=== PATIENT | male | born 1940 | race Caucasian/White ===

== ENCOUNTER → 2019-09-03 | Day surgery (SDC) | payer MEDICARE, OTHER ==
[~2019-09-03] MED LIST: ALLOPURINOL300 MG PO; ASPIRIN81 MG PO; CORDARONE200 MG PO; FINASTERIDE5 MG PO; FUROSEMIDE40 MG PO; GLIMEPIRIDE2 MG PO; HYDRALAZINE HCL50 MG; JANUVIA100 MG PO; LABETALOL HCL100 MG PO; LIDOCAINE HCL 2% LOCAL INJ 5 ML SDV VIAL INJ ONE; LOSARTAN POTAS100 MG PO; LOVASTATIN40 MG; NIASPAN1000 MG; NIFEDICAL XL30 MG PO; PRADAXA150 MG; PROPOFOL IV EMULSION 10 MG/ML 20 ML VIAL ONE; SODIUM CHLORIDE 0.9% 500ML 500 ML ONE; TAMSULOSIN HCL0.4 MG
--- OUTSIDE RECORDS SUMMARY | 2019-09-03 09:51 | XMS REPORT ---
Author Author [facility] Address Unknown Phone Unavailable Care Team Providers Care Electrical Line Mechanic Name Role Phone Unavailable Unavailable Payers Payer Name Policy Type Policy Number Effective Date Expiration Date Problems This patient has no known problems. Allergies, Adverse Reactions, Alerts Allergy Name Allergy Type Status Severity Reaction(s) Onset Date Inactive Date Treating Clinician Comments neomycin DA Active [place] 2019-07-21 00:00:00 bacitracin DA Active [place] 2019-07-21 00:00:00 polymyxin B DA Active [place] 2019-07-21 00:00:00 neomycin DA Active [place] 2019-07-15 00:00:00 bacitracin DA Active [place] 2019-07-15 00:00:00 polymyxin B DA Active [place] 2019-07-15 00:00:00 neomycin DA Active [place] 2018-02-18 00:00:00 bacitracin DA Active [place] 2018-02-18 00:00:00 polymyxin B DA Active [place] 2018-02-18 00:00:00 Medications This patient has no known medications. Results Test Description Test Time Test Comments Text Results Atomic Results Result Comments GLUBED 2019-07-21 13:20:00 GLUBED (test code=GLUBED) 106 mg/dL 60-125 - XR FLUORO FOR SPINE [id number] 13:15:00 Patient Name: YEIMI TONG Unit No: [id number] EXAMS: CPT CODE: [id number] XR FLUORO FOR SPINE INJ 11837 LUMBAR TRANSFORAMINAL INJECTION REFERRING PHYSICIAN: PREOPERATIVE DIAGNOSIS: Degenerative Lumbar Disc Disease. POSTOPERATIVE DIAGNOSIS: Lumbar radiculopathy PROCEDURES PERFORMED 1. Fluoroscopically guided needle localization of the bilateral L4, bilateral L5 spinal nerve/nerves with transforaminal epidural steroid injection/injections. 2. Transforaminal epidurogram/epidurograms at bilateral L4, bilateral L5. FINDINGS: Poor filling all. Concordant provocation bilateral L5 hips, left L4 buttock. Pain relief-100%. ANTIBIOTIC: Cefazolin ESTIMATED BLOOD LOSS: Minimal ANESTHESIA: (TIVA )Total intravenous anesthetic (patient intolerant to sedatives and hypnotics) COMPLICATIONS: None DETAILS OF PROCEDURE: After obtaining stable vital signs, informed consent and IV access, with no known contraindications to proceeding, the patient was taken to the f luoroscopy suite and placed in a prone position with all extremities padde d and appropriate monitors placed. A sterile prep and drape was performed over the lumbosacral spine. Using fluoroscopic visualization at ea ch level the insertion site was marked for a paravertebral approach to the foramen. Using standard technique, a 25 gauge needle was advanced to the base of the pedicle. In AP view, final positioning was obtained outside th e 6 on the clock position on the pedicle. Then, 1 ml of Isovue-300 contras t was injected to produce the epidurograms. No paresthesias were elicited with needle insertion or injection and there were no signs of intrav ascular or intrathecal uptake. Then, with 1 ml of 4% lidocaine and 10 mg of triamcinolone was injected incrementally with frequent negative aspira tions. There were no signs of intravascular or intrathecal uptake. Each rey bsequent level was done using the same technique and medications. The raf ent's vital signs remained stable. The patient was taken to the PACU in go od condition. Electronically Signed by Pricilla Moore on 0 at 1315 Reported and signed by: Prosper Moore M.D. [facility] NAME: YEIMI TONG [address] [facility] PHYS: DOCUD - DoctorProsper MD [place], [place] [address] : 1940 AGE: 78 SEX: M LOC: ASIA PHONE #: EXAM DATE: 07/21/2019 STATUS: REG MOC FAX #: RAD #: D/C DT PAGE 1 Signed Report (CONTINUED) Patient Name: YEIMI TONG Unit No: [id number] EXAMS: CPT CODE: [id number] XR FLUORO FOR SPINE INJ 69800 <Continued> CC: Technologist: Sera Ramos(R) Transcribed D/ (9842) CharleeUVD [facility] NAME: YEIMI TONG [address] [facility] PHYS: JOSIANEUD - DoctorProsper MD [place] [address] : 1940 AGE: 78 SEX: M LOC: ASIA PHONE #: [phone] EXAM DATE: 07/21/2019 STATUS: REG [facility] FAX #: [phone] RAD #: D/C DT PAGE 2 Signed Report Patient Name: YEIMI TONG Unit No: [id number] EXAMS: CPT CODE: [id number] XR FLUORO FOR SPINE INJ 92827 <Continued> Orig Print D/T: S: 07/21/2019 (7237) [facility] NAME: YEIMI TONG [address] [facility] PHYS: ROSALINDA - Prosper Moore MD [place] [address] : 1940 AGE: 78 SEX: M LOC: ASIA PHONE #: [phone] EXAM DATE: 07/21/2019 STATUS: REG [facility] FAX #: [phone] RAD #: D/C DT PAGE 3 Signed Report [id number] 11:44:00* Test Item Value Reference Range Comments GLUBED (test code=GLUBED) 117 mg/dL 60-125 - XR L-SPINE W/BEND [id number] 10:34:00 Patient Name: YEIMI TONG Unit No: [id number] EXAMS: CPT CODE: [id number] XR L-SPINE W/BEND VIEW 35186 LUMBAR SPINE 5 VIEWS PLUS FLEXION AND EXTENSION COMMENT: COMPARISON: No prior exams available. Vertebral body heights are maintained. Endplate degenerative change and interspace narrowing is seen from L1 to L5. There is no evidence for abnormal motion with flexion and extension. 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 Further evaluation is recommended if clinically indicated. at 1034 Reported and signed by: Jasson Ramos MD CC: Prosper Moore MD Technologist: Radha Kelley RT.(R) Transcribed D/ (1034) [email or web address] [facility] NAME: YEIMI TONG [address] [facility] PHYS: Prosper Quiñones MD : 1940 AGE: 78 SEX: M [place] [address] LOC: Y.MRI PHONE #: [phone] EXAM DATE: 06/09/2019 STATUS: DEP CLI FAX #: [phone] RAD #: D/C DT PAGE 1 Signed Report Patient Name: YEIMI TONG Unit No: [id number] EXAMS: CPT CODE: [id number] XR L-SPINE W/BEND VIEW 94883 <Continued> Orig Print D/T: S: 06/10/2019 (1037) [facility] NAME: Bret TONG [address] [facility] PHYS: Prosper Vu MD : 1940 AGE: 78 SEX: M [place] [address] LOC: Y. MRI PHONE #: [phone] EXAM DATE: 06/09/2019 STATUS: DEP CLI FAX #: [phone] RAD #: D/C DT PAGE 2 Signed Report - MRI L-SPINE W/O [id number] 07:07:00 Patient Name: YEIMI TONG Unit No: [id number] EXAMS: CPT CODE: [id number] MRI L-SPINE W/O CONT 64070 DIAGNOSIS: 1. At L1-2 there is no evidence for disc bulge or herniation, bony canal or foraminal stenosis. 2. At L2-3 there is 2 mm of right foraminal disc bulging with slight narrowing. No left foraminal stenosis is seen. Mild central canal stenosis is present with facet and ligamentum flavum hypertrophic and degenerative change. 3. At L3-4 there is 2 mm of disc bulging in the foramina with annular fissuring and mild foraminal narrowing. Mild narrowing of the central canal is present with facet and ligamentum flavum hypertrophic and degenerative change. 4. At L4-5 there is a grade 1 retrolisthesis with associated disc bulging and moderate foraminal narrowing. Mild narrowing of the central canal is present with facet and ligamentum flavum hypertrophic and degenerative change. 5. At L5-S1 there is bilateral foraminal annular fissuring without bulging or protrusion of the disc contour. No canal or foraminal narrowing is seen. Bilateral facet degeneration is present with a small left facet effusion. 6. The kidneys are small bilaterally. Ultrasound is recommended in further evaluation if clinically indicated. COMMENT: COMPARISON: No prior exams available. Scans were performed in the sagittal and axial planes utilizing T1, T2 and inversion recovery images. Endplate and disc degeneration is seen from L3 to L5. The remain ing discs are desiccated. Disc configurations are as described. Spon dylitic changes are as noted. The conus is in the expected location. The d escription these findings assumes a normal count of 5 lumbar type vertebra . at 0707 Repor reji and signed by: Jasson Ramos MD CC: Prosper Moore MD Technologist: OMID HULL MRI Transcribed D/ (0707) CharleeL [facility] NAME: JEANNIEROBBYEIMI Soria [address] [facility] PHYS: DOCUD - DoctorProsper MD : 1940 AGE: 78 SEX: M [place], [place] [address] LOC: Y.MRI PHONE #: [phone] EXAM DATE: 06/09/2019 STATUS: DEP CLI F AX #: [phone] RAD #: D/C DT PAGE 1 Signed Report Patient Na me: YEIMI TONG Unit No: [id number] EXAMS: CPT CODE: [id number] MRI L-SPINE W/O CONT 90772 <Continued> Orig Print D/T: S: 06/10/2019 (0710) [facility] NAME: YEIMI TONG [address] [facility] PHYS: DOCUD - Doctor,Prosper Garner MD : 1940 AGE: 78 SEX: [place], [place] [address] LOC: Y.MRI PHONE #: [phone] EXAM DATE: 06/09/2019 STATUS: DEP CLI FAX #: [phone] RAD #: D/C DT PAGE 2 Signed Report
[2019-09-03 12:56] VITALS: BP 141/69
== END | disposition home or self-care (01) ==
LOC: OR 09:29
PROVIDERS: ATTEND Internal Medicine Gastroenterology
DX: K57.30 Diverticulosis of large intestine without perforation or abscess without bleeding (principal); D12.0 Benign neoplasm of cecum; E66.9 Obesity, unspecified; K64.8 Other hemorrhoids; J44.9 Chronic obstructive pulmonary disease, unspecified; M06.9 Rheumatoid arthritis, unspecified; E11.22 Type 2 diabetes mellitus with diabetic chronic kidney disease; N18.6 End stage renal disease; I12.0 Hypertensive chronic kidney disease with stage 5 chronic kidney disease or end stage renal disease; G47.33 Obstructive sleep apnea (adult) (pediatric); E78.5 Hyperlipidemia, unspecified; R00.1 Bradycardia, unspecified; Z88.3 Allergy status to other anti-infective agents; Z01.810 Encounter for preprocedural cardiovascular examination; Z99.2 Dependence on renal dialysis; Z79.82 Long term (current) use of aspirin; Z79.84 Long term (current) use of oral hypoglycemic drugs; Z68.33 Body mass index [BMI] 33.0-33.9, adult; Z87.891 Personal history of nicotine dependence
CPT/HCPCS: 36415; 45385; 82948; 84132; 88305; 93005; J2001; J2704; J7040